=== PATIENT | male | born 1990 | race Two or more races ===

== ENCOUNTER 2018-01-26 02:23 | Emergency (ER) | payer MEDICAID, OTHER ==
[~2018-01-26] VITALS: Ht 172.7 cm; Wt 77.3 kg
[2018-01-26 02:58] VITALS: BP 122/80
== END 2018-01-26 09:30 | disposition home or self-care (01) ==
LOC: ER 02:23
DX: F10.129 Alcohol abuse with intoxication, unspecified (principal); Y90.9 Presence of alcohol in blood, level not specified
CPT/HCPCS: 99283; 99284